=== PATIENT | male | born 1990 | race American Indian/Alaskan Native ===

== ENCOUNTER 2016-06-03 09:11 | Emergency (ER) | payer OTHER ==
[2016-06-03 09:26] VITALS: BP 127/89
--- NOTE | 2016-06-03 11:20 | Emergency Department Report ---
Entered by NO TREVINO, acting as scribe for CLARK SULTANA PA. Abscess Boil HPI - HPI Chief Complaint: Skin/Abscess/Foreign Body Stated Complaint: BOIL LEG AREA Time Seen by Provider: 06/03/16 10:31 Duration: 2 Days Location: Lower Extremity (right inguinal area) Severity: Moderate History: Yes Fever (subjective), Yes Pain, Yes Purulent Drainage (minimal), Yes Previous History (similar symptoms in past), No Numbness, No Foreign Body, No Insect Bite HPI: 26 year old male with no significant PMHx presents to the ED c/o an abscess on right inguinal area that began 2 days ago. Associated symptoms include minimal purulent drainage, subjective fever, and chills, but he denies numbness, tingling, nausea and vomiting. Notes applying warm compresses last night with mild relief. He states that he's had similar symptoms in the past and notes that the symptoms returned, because he stopped shaving the area. NKDA. Home Medications: Previous Rx's Medication Instructions Recorded Last Taken Type Cephalexin [Keflex] 500 mg PO QID #40 capsule 06/03/16 Unknown Rx Ibuprofen [Motrin] 800 mg PO Q8HR PRN #30 tablet 06/03/16 Unknown Rx Allergies/Adverse Reactions: Allergies Allergy/AdvReac Type Severity Reaction Status Date / Time No Known Allergies Allergy Unverified 06/03/16 09:19 ED Review of Systems ROS: Stated complaint: BOIL LEG AREA Other details as noted in HPI Comment: All other systems reviewed and negative Constitutional: chills, fever (subjective). denies: other (tingling) Gastrointestinal: denies: nausea, vomiting Musculoskeletal: denies: back pain Skin: other (1 x 2 indurated abscess on right inguinal area ). denies: rash Neurological: denies: numbness, abnormal gait ED Past Medical Hx - Past Medical History Previous Medical History?: No - Surgical History Past Surgical History?: No - Social History Smoking Status: Never Smoker Substance Use Type: None - Medications Home Medications: Home Medications Medication Instructions Recorded Confirmed Last Taken Type Cephalexin [Keflex] 500 mg PO QID #40 capsule 06/03/16 Unknown Rx Ibuprofen [Motrin] 800 mg PO Q8HR PRN #30 tablet 06/03/16 Unknown Rx ED Abscess Boil Physical Exam - Exam General: Vital signs noted. No distress. Alert and acting appropriately. Size: 1 cm (1 x 2) Exam: Yes Tenderness (minimal), Yes Surrounding Cellulites/Erythema (1 x 2 indurated abscess on right inguinal area), Yes Normal Neurologic Exam, Yes Normal Circulation, No Fluctuance, No Lymphangitis, No Crepitation, No Heart Murmur Exam: GENERAL: Patient is alert and oriented x 3. No apparent distress, normal gait, atraumatic. HEAD: Head is normocephalic and atraumatic. EYES: Extraocular movements are intact. Pupils are equal, round, and reactive to light and accommodation. EARS: Symmetrical, atraumatic. NOSE: Nose symmetrical , nontender. Nares appeared normal. MOUTH: Mucous membranes are moist. NECK: Supple. LUNGS: Symmetrical with respiration. HEART: Regular rate and rhythm. ABDOMEN: Soft, nondistended. EXTREMITIES/MUSCULOSKELETAL: FROM bilaterally. SKIN: Warm and dry. No lesions. 1 x 2 indurated abscess on right inguinal area present. NEUROLOGIC: No focal deficit. PSYCHIATRIC: Mood is congruent with affect. ED Course Vital Signs 06/03/16 09:21 Temperature 98.5 F Pulse Rate 88 Respiratory 16 Rate Blood Pressure 127/89 O2 Sat by Pulse 100 Oximetry Critical care attestation.: If time is entered above; I have spent that time in minutes in the direct care of this critically ill patient, excluding procedure time. ED Medical Decision Making - Medical Decision Making Patient was evaluated in fast track area of ED by this provider. Patient presented with a 1 x 2 abscess on right inguinal area for 2 days. Patient is in no acute distress at this time. He will be discharged home with prescription antibiotics. Patient is instructed to continue warm salt compresses to affected area. He is encouraged to return to the emergency room for any worsening symptoms. ED Disposition Clinical Impression: Cellulitis and abscess of buttock Disposition: DISCHARGED TO HOME OR SELFCARE Is pt being admited?: No Does the pt Need Aspirin: No Condition: Stable Instructions: Cellulitis (ED) Additional Instructions: Complete antibiotics as prescribed. Take the Motrin for pain management. Recommend for you to apply warm compresses on the boil as well as warm hot Epson salt soaks. Return to the emergency room in 3-5 days for reevaluation of the boil. Return sooner if he develops a fever nausea vomiting. Prescriptions: Cephalexin [Keflex] 500 mg PO QID #40 capsule Ibuprofen [Motrin] 800 mg PO Q8HR PRN #30 tablet PRN Reason: Pain Referrals: PRIMARY CARE, [Primary Care Provider] - 3-5 Days HIEU BENEDICT MD [Staff Physician] - 3-5 Days Forms: Work/School Release Form(ED) This documentation as recorded by the BELINDA marion JASMINE,accurately reflects the service I personally performed and the decisions made by , CLARK SULTANA, PA.
== END 2016-06-03 11:37 | disposition home or self-care (01) ==
LOC: ED 09:11
DX: L03.317 Cellulitis of buttock (principal)
CPT/HCPCS: 99282

== ENCOUNTER 2017-05-18 19:25 | Emergency (ER) | payer SELFPAY ==
[2017-05-18] MEDS ORDERED: MOTRIN PO ONE (19:55)
--- NOTE | 2017-05-18 23:12 | XRay Report ---
FINAL REPORT EXAM: XR FOOT 2V RT HISTORY: right great toe pain TECHNIQUE: 2 views right foot PRIORS: None. FINDINGS: No fracture or dislocation identified. Joint spaces are within normal limits. No radiopaque foreign body seen. No soft tissue abnormality identified. IMPRESSION: Negative foot series
--- NOTE | 2017-05-19 00:38 | Emergency Department Report ---
ED Extremity Problem HPI - General Chief complaint: Extremity Injury, Lower Stated complaint: RT GREAT TOE PAIN; URI SX Time Seen by Provider: 05/19/17 00:33 Source: patient Mode of arrival: Ambulatory Limitations: No Limitations - History of Present Illness Initial comments: 27-year-old male presents to the hospital after a steel plate fell on his right foot while at work. Patient had on a work boot. He complains of pain to the MTP area of the right great toe. Pain is rated 8/10 in intensity, throbbing, worse with palpation and movement. Patient also has complaints of stuffy nose, sneezing, and sinus congestion. No complaints of fever or other injury. Severity scale (0 -10): 8 - Related Data Previous Rx's Medication Instructions Recorded Last Taken Type Cephalexin [Keflex] 500 mg PO QID #40 capsule 06/03/16 Unknown Rx Cetirizine HCl/Pseudoephedrine 1 each PO Q12HR PRN #30 tab.er.12h 05/19/17 Unknown Rx [Zyrtec-D Tablet] Ibuprofen [Motrin 800 MG tab] 800 mg PO Q8HR PRN #30 tablet 05/19/17 Unknown Rx traMADol [Ultram 50 MG tab] 50 mg PO Q6HR PRN #20 tablet 05/19/17 Unknown Rx Allergies Allergy/AdvReac Type Severity Reaction Status Date / Time No Known Allergies Allergy Unverified 06/03/16 09:19 ED Review of Systems ROS: Stated complaint: RT GREAT TOE PAIN; URI SX Other details as noted in HPI Comment: All other systems reviewed and negative ED Past Medical Hx - Past Medical History Previous Medical History?: No - Surgical History Past Surgical History?: No - Social History Smoking Status: Current Every Day Smoker Substance Use Type: None - Medications Home Medications: Home Medications Medication Instructions Recorded Confirmed Last Taken Type Cephalexin [Keflex] 500 mg PO QID #40 capsule 06/03/16 Unknown Rx Cetirizine HCl/Pseudoephedrine 1 each PO Q12HR PRN #30 tab.er.12h 05/19/17 Unknown Rx [Zyrtec-D Tablet] Ibuprofen [Motrin 800 MG tab] 800 mg PO Q8HR PRN #30 tablet 05/19/17 Unknown Rx traMADol [Ultram 50 MG tab] 50 mg PO Q6HR PRN #20 tablet 05/19/17 Unknown Rx ED Physical Exam - General Limitations: No Limitations - Other Other exam information: General: No limitations, patient is alert in no acute distress Head exam: Atraumatic, normocephalic Eyes exam: Normal appearance, pupils equal reactive to light, extraocular movements intact ENT: Moist mucous membrane, nasal congestion Neck exam: Normal inspection, full range of motion, no meningismus nontender Respiratory exam: Clear to auscultation bilateral, no wheezes, rales, crackles Cardiovascular: Normal rate and rhythm, normal heart sounds Abdomen: Soft, nondistended, and nontender, with normal bowel sounds, no rebound, or guarding Extremity: Full range of motion normal inspection no deformity, tenderness to right great toe MTP joint Back: Normal Inspection, full range of motion, no tenderness Neurologic: Alert, oriented x3, cranial nerves intact, no motor or sensory deficit Psychiatric: normal affect, normal mood Skin: Warm, dry, intact ED Course Vital Signs 05/18/17 19:46 Temperature 99 F Pulse Rate 96 H Blood Pressure 125/77 O2 Sat by Pulse 97 Oximetry - Reevaluation(s) Reevaluation #1: 05/19/17 00:35 pt received motrin earlier without much pain improvement ED Medical Decision Making - Radiology Data Radiology results: report reviewed xray right foot FINDINGS: No fracture or dislocation identified. Joint spaces are within normal limits. No radiopaque foreign body seen. No soft tissue abnormality identified. IMPRESSION: Negative foot series - Medical Decision Making Right foot injury X-ray negative for fracture Patient had on reinforce boots when injury occurred Pain medication will be prescribed for contusion Allergy symptoms Pollen counts currently high Patient will be treated with allergy medication PMD follow up will be encouraged. - Differential Diagnosis fracture, contusion, sprain Critical Care Time: No Critical care attestation.: If time is entered above; I have spent that time in minutes in the direct care of this critically ill patient, excluding procedure time. ED Disposition Clinical Impression: Contusion of right great toe without damage to nail, Seasonal allergies Disposition: DC- TO HOME OR SELFCARE Is pt being admited?: No Does the pt Need Aspirin: No Condition: Stable Instructions: Allergies (ED), Foot Contusion (ED) Additional Instructions: Take the medication as prescribed. Tramadol may cause drowsiness therefore do not drive or operate heavy machinery while taking this medication. Follow-up with the primary care doctor or clinic provided (or the doctor of your choice). Return if symptoms worsen Prescriptions: Cetirizine HCl/Pseudoephedrine [Zyrtec-D Tablet] 1 each PO Q12HR PRN #30 tab.er.12h PRN Reason: Allergy Symptoms Ibuprofen [Motrin 800 MG tab] 800 mg PO Q8HR PRN #30 tablet PRN Reason: Pain traMADol [Ultram 50 MG tab] 50 mg PO Q6HR PRN #20 tablet PRN Reason: Pain Referrals: ANABEL CHRIS MD [Staff Physician] - 3-5 Days [facility] [Provider Group] - 3-5 Days Time of Disposition: 00:41
[2017-05-19 01:18] VITALS: BP 128/76
== END 2017-05-19 01:18 | disposition home or self-care (01) ==
LOC: ED 19:25
DX: S90.111A Contusion of right great toe without damage to nail, initial encounter (principal); J30.2 Other seasonal allergic rhinitis; F17.200 Nicotine dependence, unspecified, uncomplicated; W20.8XXA Other cause of strike by thrown, projected or falling object, initial encounter; Y93.89 Activity, other specified; Y92.89 Other specified places as the place of occurrence of the external cause; Y99.8 Other external cause status
CPT/HCPCS: 99283

== ENCOUNTER 2019-02-18 07:24 | Emergency (ER) | payer SELFPAY ==
[2019-02-18 07:35] VITALS: BP 135/73
--- NOTE | 2019-02-18 09:32 | Emergency Department Report ---
Chief Complaint: Upper Respiratory Infection Stated Complaint: FLU LIKE SYM Time Seen by Provider: 02/18/19 09:23 - HPI History of Present Illness: pt states that he has flu like symptoms that began three days ago. he has associated headache, couple episodes of vomiting, body aches, chills. no fever, no diarrhea, no abd pain, no CP, no SOB. states has had a sick contact with URI symptoms. no PMHx. no allergies to meds. vitals are normal on exam: non toxic appearing, no acute distress normal oropharynx normal TMs and canals bilaterally normal turbinates bilaterally normal breath sounds bilaterally, without w/r/r normal heart sounds, no murmur, no gallop, no rub pt is presenting with cold/viral symptoms pt is presenting with a non medical emergency at this time medical screening examination performed and there is no threat to life or limb at this time discussed the importance of oral rehydration and supportive care with pt will refer pt to a PCP - Exam Vital Signs: Vital Signs 02/18/19 07:32 Temperature 98.3 F Pulse Rate 83 Respiratory 16 Rate Blood Pressure 135/73 O2 Sat by Pulse 97 Oximetry MSE screening note: Focused history and physical exam performed. Due to findings the following was ordered: ED Disposition for MSE Clinical Impression: Viral illness Disposition: DC-01 TO HOME OR SELFCARE Is pt being admited?: No Does the pt Need Aspirin: No Condition: Stable Instructions: Viral Syndrome (ED) Additional Instructions: please increase your fluid intake over the next several days. may take tylenol or ibuprofen for body aches or if you have a fever. may take over the counter cough/cold medication. follow up with a primary care doctor in the next 2-3 days for reexamination. return to the emergency room for any new or worsening symptoms. Referrals: SURY TOUSSAINT MD [Staff Physician] - 2-3 Days [facility] [Outside] - 2-3 Days [facility] [Outside] - 2-3 Days Forms: Work/School Release Form(ED) Time of Disposition: 09:32 Print Language: ARGENT[place]
== END 2019-02-18 10:00 | disposition home or self-care (01) ==
LOC: ED 07:24
DX: B33.8 Other specified viral diseases (principal)
CPT/HCPCS: 99282

== ENCOUNTER 2019-11-19 11:45 | Emergency (ER) | payer SELFPAY ==
[2019-11-19 12:08] VITALS: BP 119/75
== END 2019-11-19 15:25 | disposition left against medical advice (07) ==
LOC: ED 11:45
DX: M79.645 Pain in left finger(s) (principal); Z53.21 Procedure and treatment not carried out due to patient leaving prior to being seen by health care provider